=== PATIENT | male | born 1985 | race Caucasian/White ===

== ENCOUNTER 2021-03-02 05:59 | Emergency (ER) | payer MEDICAID ==
[~2021-03-02] VITALS: Ht 175.3 cm; Wt 72.6 kg
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
--- NOTE | 2021-03-02 06:56 | NUR ---
RADIOLOGY AT BEDSIDE/
[2021-03-02] MEDS ORDERED: CEPH500T PO (06:57)
--- NOTE | 2021-03-02 07:42 | NUR ---
PATIENT IN BED ASLEEP. AWAITING XRAY RESULTS
[2021-03-02 08:11] VITALS: BP 132/65
--- NOTE | 2021-03-02 08:11 | NUR ---
Patient discharged to home in stable condition. Written and verbal after care instructions given. Patient verbalizes understanding of instruction.
== END 2021-03-02 08:12 | disposition home or self-care (01) ==
LOC: ER 06:07
DX: S50.811A Abrasion of right forearm, initial encounter (principal); M25.461 Effusion, right knee; L03.115 Cellulitis of right lower limb; F17.200 Nicotine dependence, unspecified, uncomplicated; V49.69XA Unspecified car occupant injured in collision with other motor vehicles in traffic accident, initial encounter; Y93.89 Activity, other specified; Y92.89 Other specified places as the place of occurrence of the external cause; Y99.8 Other external cause status
CPT/HCPCS: 73030-TC; 73564-TC

== ENCOUNTER 2022-03-08 07:55 | Emergency (ER) | payer MEDICAID ==
[~2022-03-08] VITALS: Ht 175.3 cm; Wt 77.1 kg
[2022-03-08 07:55] VITALS: BP 136/93
[~2022-03-08 07:55] MED LIST: CEPH500T PO
--- NOTE | 2022-03-08 07:55 | NUR ---
BIBS C/O RIGHT HAND SWELLING X 2 DAYS PT DENIES TRAUMA. PAIN IS 8/10 ON PAIN SCALE.
[2022-03-08] MEDS ORDERED: KETO10TA2 PO ×2 (08:13→08:14)
[2022-03-08] MEDS ORDERED: HYDR-4209 PO ×2 (08:13→08:14)
[2022-03-08] MEDS ORDERED: SULF1TAB48 PO ×2 (08:13→08:14)
[2022-03-08] MEDS: KETOROLAC TROMETHAMINE INJ 30 MG/ML VIAL IM ONE (08:52)
[2022-03-08] MEDS ORDERED: KETOROLAC TROMETHAMINE INJ 30 MG/ML VIAL ONE (08:53)
--- NOTE | 2022-03-08 09:01 | NUR ---
Patient discharged to home in stable condition. Written and verbal after care instructions given. Patient verbalizes understanding of instruction.
== END 2022-03-08 09:03 | disposition home or self-care (01) ==
LOC: ER 08:01
DX: L03.113 Cellulitis of right upper limb (principal); F17.200 Nicotine dependence, unspecified, uncomplicated; Z79.899 Other long term (current) drug therapy
CPT/HCPCS: 99283; 96372; J1885

== ENCOUNTER 2024-08-21 11:53 | Emergency (ER) | payer MEDICAID ==
[~2024-08-21] VITALS: Ht 175.3 cm; Wt 81.6 kg
[~2024-08-21 11:53] MED LIST changes: +HYDR-4209 PO; +KETO10TA2 PO; +SULF1TAB48 PO
[2024-08-21 13:10] LABS: BASOPHILS # (AUTO) 0.1 K/uL (0.0-0.2); BASOPHILS % (AUTO) 0.6 % (0.0-2.0); EOSINOPHILS # (AUTO) 0.4 K/uL (0.0-0.7); EOSINOPHILS % (AUTO) 4.7 % (0.0-6.0); HEMATOCRIT 31 % (39-51); HEMOGLOBIN 10.8 g/dL (13.5-17.5); LYMPHOCYTES % (AUTO) 23.1 % (20.0-44.0); MEAN CORPUSCULAR HEMOGLOBIN 30 PG (26.0-33.0); MEAN CORPUSCULAR HGB CONC 35 g/dl (31.0-36.0); MEAN CORPUSCULAR VOLUME 84 fL (80-96); MONOCYTES # (AUTO) 0.5 K/uL (0.1-1.30); MONOCYTES % (AUTO) 5.1 % (2.0-12.0); NEUTROPHILS # (AUTO) 5.9 K/uL (1.8-8.9); NEUTROPHILS % (AUTO) 66.5 % (43.0-81.0); PLATELET COUNT (AUTO) 263 K/uL (150-450); RED BLOOD CELL COUNT(AUTO) 3.63 MIL/uL (4.5-6.0); RED CELL DISTRIBUTION WIDTH 12.9 % (11.5-15.0); WHITE BLOOD COUNT (AUTO) 8.8 K/uL (4.3-11.0)
[2024-08-21] MEDS: PIPERACILLIN /TAZOBACTAM 3.375 G in IV D5W 50 ML IV ONE (13:10)
[2024-08-21 13:13] LABS: CALCIUM, SERUM 9.6 mg/dL (8.5-10.1); CREATININE 0.8 mg/dL (0.6-1.3); POTASSIUM 3.6 mmol/L (3.5-5.1)
[2024-08-21 13:20] LABS: ALBUMIN 3.6 g/dL (3.4-5.0); BILIRUBIN,DIRECT 0.1 mg/dL (0.0-0.2); BILIRUBIN,TOTAL 0.3 mg/dL (0.2-1.0); TOTAL PROTEIN, SERUM 7.9 g/dL (6.4-8.2)
[2024-08-21 13:22] LABS: LACTIC ACID 1.6 mmol/L (0.4-2.0)
[2024-08-21 13:23] LABS: INR 0.97 (0.91-1.10); PARTIAL THROMBOPLASTIN TIME 29.5 SEC (24.3-34.3); PROTHROMBIN TIME 10.3 SECS (9.2-11.1)
[2024-08-21] MEDS: VANCOMYCIN 1 GM in IV D5W 250 ML IV ONE (13:54)
[2024-08-21] MEDS ORDERED: SULF1TAB48 PO (14:09)
[2024-08-21] MEDS ORDERED: CEPH-570 PO (14:09)
[2024-08-21] MEDS ORDERED: KETO10TA2 PO (14:09)
[2024-08-21 14:56] VITALS: BP 135/84; TEMP 98; O2SAT 97
== END 2024-08-21 14:56 | disposition home or self-care (01) ==
LOC: ER 12:00
DX: L03.032 Cellulitis of left toe (principal); I89.0 Lymphedema, not elsewhere classified; F17.200 Nicotine dependence, unspecified, uncomplicated; F19.11 Other psychoactive substance abuse, in remission; R07.9 Chest pain, unspecified; Z59.00 Homelessness unspecified; Z79.899 Other long term (current) drug therapy
CPT/HCPCS: 99285; 93970; 96365; 71045; 96367; 93005; 85025; 80048; 87040 ×2; 83605; 80076; 36415; 85730; 83880; J3370; J2543; J7060